=== PATIENT | female | born 1940 | race Caucasian/White ===

== ENCOUNTER → 2016-07-04 | Outpatient (CLI) | payer OTHER ==
--- NOTE | 2016-07-04 12:56 | DX ---
Lumbar Spine, Two Views July 04, 2016 Indication: Follow up fusion. Technique: Upright AP and lateral views. Comparison: Two-view lumbar spine dated February 08, 2016. Findings: The three-level posterior fusion construct extending from L4 to S1 is well seated. No rebeca hardware fracture or lucency has developed. The construct consists of dual posterior rods, transverse brace at L5, bilateral transpedicle screws at L4, L5, and S1, and devices in the L4-L5 and L5-S1 int erbody spaces. Vertebral bodies are all well preserved. No compression deformities. Severe degenerati ve disk disease at T10-T11 and mild-moderate degenerative disk disease extending from T11-T12 to L3-L 4 are unchanged. Impression: Well-seated posterior fusion construct extending from L4 to S1 is unchanged.
== END ==
LOC: FIMAGING 09:48 → EDSTATUS 11:40
PROVIDERS: ATTEND Physician Assistant
DX: Z98.1 Arthrodesis status (principal)

== ENCOUNTER 2016-07-16 14:54 | Emergency (ER) | payer OTHER ==
[2016-07-16 15:07] VITALS: O2SAT 95
[2016-07-16 15:19] LABS: COLOR YELLOW; LEUKOCYTE ESTERASE,URINE 1+ (NEGATIVE); NITRITE,URINE NEGATIVE (NEGATIVE); PH,URINE 5.5 (5.0-7.5)
--- NOTE | 2016-07-16 15:19 | UCPHY ---
H & P Patient Type: Established Chief Complaint Nursing Narrative: urinary urgency and frequency that started today. Denies back pain, denies fever Time Seen by Provider: 07/16/16 15:28 HPI/ROS: HPI: 75-year-old female presents to urgent care with chief concern urinary burning frequency that onset suddenly this afternoon. Denies fever, chills, dizziness, headache, nausea, vomiting, back or flank pain, hematuria. Has frequent UTIs. Primary care provider Dr. Kim Andre. Type 2 diabetic. ROS:10 point review of systems is negative other than as stated in HPI Source: Patient Exam Limitations: No limitations - Personal History Current Tetanus Diphtheria and Acellular Pertussis (TDAP): Yes Tetanus Vaccine Date: 2010 - Medical/Surgical History Hx Asthma: Yes Hx Chronic Respiratory Disease: No Hx Diabetes: Yes Hx Cardiac Disease: No Hx Renal Disease: No Hx Cirrhosis: No Hx Alcoholism: No Hx HIV/AIDS: No Hx Splenectomy or Spleen Trauma: No Other PMH: PMH- diabetes, UTI'S, ASTHMA, HTN. PSH- BACK, B HIPS, APPY, HYSTERECTOMY - Family History Significant Family History: No pertinent family hx - Social History Smoking Status: Former smoker Alcohol Use: None Drug Use: None - Physical Exam Exam: Vital signs stable, reviewed by me HEENT: Unremarkable. Atraumatic. PEERLA/EOMI. Neck: Supple, nontender, no lymphadenopathy Resp: Lungs CTA bilaterally. Breath sounds equal bilaterally. CV: HRR. S1S2. No MRG. ABD: Soft, nontender. Bowel sounds normoactive x 4 quadrants. : No CVA or flank tenderness. No suprapubic tenderness Extremities: Full ROM all extremities Neuro: Alert, oriented x 3. No focal deficits. Mental Status: Interactive, appropriate, well-groomed. Constitutional: Initial Vital Signs Temperature (C) 36.7 C 07/16/16 15:06 Heart Rate 85 07/16/16 15:06 Respiratory Rate 18 07/16/16 15:06 Blood Pressure 158/77 H 07/16/16 15:06 O2 Sat (%) 95 07/16/16 15:06 O2 Delivery Mode Room Air Allergies/Adverse Reactions: No Allergies [NKDA] Allergy (Verified 04/14/15 14:55) POLLEN Allergy (Mild, Uncoded 04/14/15 14:55) SNEEZE Home Medications: Medication Instructions Recorded Atorvastatin Calcium [Lipitor 20 20 mg PO DAILY 09/24/13 mg (*)] Cholecalciferol Vit D3 [Vitamin D3 1,000 units PO DAILY 09/24/13 (*)] Omeprazole [Prilosec 20 mg] 20 mg PO DAILY 09/24/13 Valsartan/Hydrochlorothiazide 1 each PO DAILY 09/24/13 [Diovan Hct 160-25 mg Tablet] C/E/Zn/Cu/OM3/DHA/EPA/LUT/ZEAX 1 each PO DAILY 09/28/15 [Preservision Areds 2 Softgel] Galantamine HBr [Razadyne ER] 16 mg PO DAILY 09/28/15 Herbals/Supplements -Info Only 1 ea PO DAILY 09/28/15 [place]-3 Ethyl Est-Lovaza [Lovaza 1 4 gm PO DAILY 09/28/15 gm (*)] metFORMIN HCL [Glucophage 500 mg 1,000 mg PO DAILY 09/28/15 (*)] metFORMIN HCL [Glucophage 500 mg 500 mg PO DAILY@17 09/28/15 (*)] Enoxaparin [Lovenox 40 MG (*)] 40 mg SC DAILY #7 syr 10/19/15 HYDROcodone/APAP 10/325 [[place] 1 - 2 tab PO Q6 PRN #90 tab 10/19/15 10/325 (*)] Methocarbamol [Robaxin 750 mg (*)] 750 mg PO QID PRN #60 tab 10/19/15 Sennosides/Docusate Sodium 1 - 2 tab PO BID #40 tab 10/19/15 [Senokot-S] oxyCODONE CR [Oxycontin] 10 mg PO Q12 #30 tab 10/19/15 Cephalexin [Keflex (RX)] 500 mg PO TID 6 Days 04/11/16 Phenazopyridine HCl [Pyridium] 200 mg PO TID #6 tab 04/11/16 Meclizine HCl [Meclizine HCl 25 mg 25 mg PO Q8 PRN #20 tab 06/17/16 (RX,OTC)] Cephalexin [Keflex (*)] 500 mg PO BID #14 cap 07/16/16 Medical Decision Making ED Course/Re-evaluation: Stable, afebrile, nontoxic 75-year-old female presents to urgent care with dysuria. Urinalysis indicates 1+ esterase, 15-25 WBCs. Urine culture pending. Started on twice daily Keflex x1 week. Counseled regarding need for follow-up. Verbalizes understanding. Differential Diagnosis: Cystitis, pyelonephritis, dysuria - Data Points Laboratory Results: 07/16/16 15:10 Urine Color YELLOW Urine Appearance HAZY Urine pH 5.5 (5.0-7.5) Ur Specific [place] >= 1.030 (1.002-1.030) Urine Protein NEGATIVE (NEGATIVE) Urine Ketones TRACE H (NEGATIVE) Urine Blood NEGATIVE (NEGATIVE) Urine Nitrate NEGATIVE (NEGATIVE) Urine Bilirubin NEGATIVE (NEGATIVE) Urine Urobilinogen 0.2 EU (0.2-1.0) Ur Leukocyte Esterase 1+ H (NEGATIVE) Urine RBC 3-5 H /hpf (0-3) Urine WBC 15-25 H /hpf (0-3) Ur Epithelial Cells 2+ H /lpf (NONE-1+) Urine Bacteria 2+ H /hpf (NONE SEEN) Hyaline Casts 5-10 H /lpf (0-1) Urine Mucus 2+ H /lpf (NONE-1+) Urine Glucose NEGATIVE (NEGATIVE) Medications Given: Discontinued Medications Cephalexin HCl (Keflex) 500 mg PO EDNOW ONE PRN Reason: Protocol Stop: 07/16/16 15:31 Last Admin: 07/16/16 15:48 Dose: 500 mg Departure - Departure Disposition: Home, Routine, Self-Care Clinical Impression: Urinary tract infection Qualifiers: Urinary tract infection type: acute cystitis Hematuria presence: without hematuria Qualifier Code: (N30.00) Acute cystitis without hematuria Instructions: Urinary Tract Infection in Women (ED) Additional Instructions: Plan: Keflex 500 mg twice daily for 1 week, take with food, 1st dose given in Urgent Care Drink plenty of fluids If he developed fever, back or flank pain, nausea or vomiting, return here promptly for recheck or go to emergency department Otherwise, follow up with Dr. Kim Andre the by Friday for recheck without fail- -When you call to schedule appointment, please let the office know you are an "ER follow up" appointment" [id number] azo as needed for urinary discomfort Referrals: Dughi,Kim J, MD [Primary Care Provider] - As per Instructions Prescriptions: Cephalexin [Keflex (*)] 500 mg PO BID #14 cap - PQRS PQRS Measurement: 134: Depression screening and followup, PRIME -PHQ2 (12 years and older) Over the last 2 weeks, how often have you been bothered by any of the following problems? 1. Feeling down, depressed, or hopeless? 2. Little interest or pleasure in doing things? Patient answered no to both 1 and 2 130: Documentation of medications. Reviewed all patient medications, doses, route and frequency. 226: Do you smoke? No 47: 65 and older: Advanced care planning. Patient has advanced directive. 51: 18 years old and older with diagnosis of COPD, spirometry performance. Patient has no history of COPD 52: 18 years old and older with COPD and symptoms of COPD or FEV1<60% no history of COPD
[2016-07-16] MEDS ORDERED: CEPHALEXIN 500 MG CAP PO ONE (15:30)
[2016-07-16 15:44] LABS: BACTERIA 2+ /hpf (NONE SEEN); MUCUS 2+ /lpf (NONE-1+); WBC,URINE 15-25 /hpf (0-3)
[2016-07-16 15:58] VITALS: BP 144/75; PULSE 72; RESP 20; TEMP 98.2
== END 2016-07-16 15:53 | disposition home or self-care (01) ==
LOC: CED 14:54
DX: N30.00 Acute cystitis without hematuria (principal); Z87.440 Personal history of urinary (tract) infections
CPT/HCPCS: 81003-PO; 81015-PO; 99214-PO; G0463-PO

== ENCOUNTER 2016-08-27 11:02 | Emergency (ER) | payer OTHER ==
[2016-08-27 11:23] VITALS: BP 151/67; PULSE 89; RESP 18; TEMP 98.1; O2SAT 93
[2016-08-27 11:32] LABS: COLOR YELLOW; LEUKOCYTE ESTERASE,URINE 2+ (NEGATIVE); NITRITE,URINE POSITIVE (NEGATIVE); PH,URINE 5.5 (5.0-7.5)
[2016-08-27 11:47] LABS: BACTERIA 1+ /hpf (NONE SEEN); RBC,URINE 25-50 /hpf (0-3); WBC,URINE >182 /hpf (0-3)
--- NOTE | 2016-08-27 11:55 | UCPHY ---
H & P Time Seen by Provider: 08/27/16 11:43 Patient Type: Established HPI/ROS: This patient has UTI symptoms. She explains a yesterday she developed dysuria frequency and urgency similar to previous bladder infections. She notes no exacerbating or alleviating factors. Her last UTI was 1 year ago. ROS: No fevers or chills. No other constitutional symptoms. : No flank pain GI: No vomiting. 5 point ROS is otherwise negative Past Medical/Surgical History: UTIs [id number] diabetes Smoking Status: Former smoker Physical Exam: Pleasant 75-year-old female with normal vital signs General Appearance: Alert, no distress. Respiratory: There are no retractions, lungs are clear to auscultation. Cardiovascular: Regular rate and rhythm. Gastrointestinal: Minimal suprapubic tenderness with no guarding or rebound. Back: No CVA tenderness Neurological: Alert. No focal deficits noted Skin: Warm and dry, no rashes. DIFFERENTIAL DIAGNOSIS: After history and physical exam differential diagnosis was considered for cystitis, interstitial cystitis, pyelonephritis, urethral pathology Constitutional: Initial Vital Signs Temperature (C) 36.7 C 08/27/16 11:21 Heart Rate 89 08/27/16 11:21 Respiratory Rate 18 08/27/16 11:21 Blood Pressure 151/67 H 08/27/16 11:21 O2 Sat (%) 93 08/27/16 11:21 O2 Delivery Mode Room Air Allergies/Adverse Reactions: No Allergies [NKDA] Allergy (Verified 08/27/16 11:18) POLLEN Allergy (Mild, Uncoded 04/14/15 14:55) SNEEZE Home Medications: Medication Instructions Recorded Atorvastatin Calcium [Lipitor 20 20 mg PO DAILY 09/24/13 mg (*)] Cholecalciferol Vit D3 [Vitamin D3 1,000 units PO DAILY 09/24/13 (*)] Omeprazole [Prilosec 20 mg] 20 mg PO DAILY 09/24/13 Valsartan/Hydrochlorothiazide 1 each PO DAILY 09/24/13 [Diovan Hct 160-25 mg Tablet] C/E/Zn/Cu/OM3/DHA/EPA/LUT/ZEAX 1 each PO DAILY 09/28/15 [Preservision Areds 2 Softgel] Galantamine HBr [Razadyne ER] 16 mg PO DAILY 09/28/15 Herbals/Supplements -Info Only 1 ea PO DAILY 09/28/15 [place]-3 Ethyl Est-Lovaza [Lovaza 1 4 gm PO DAILY 09/28/15 gm (*)] metFORMIN HCL [Glucophage 500 mg 1,000 mg PO DAILY 09/28/15 (*)] metFORMIN HCL [Glucophage 500 mg 500 mg PO DAILY@17 09/28/15 (*)] Methocarbamol [Robaxin 750 mg (*)] 750 mg PO QID PRN #60 tab 10/19/15 Sennosides/Docusate Sodium 1 - 2 tab PO BID #40 tab 10/19/15 [Senokot-S] Cephalexin [Keflex (*)] 500 mg PO TID #21 cap 08/27/16 MDM/Departure - MDM Diagnostics: Urinalysis is consistent with UTI. ED Course/Re-evaluation: History and clinical findings consistent with cystitis. I counseled patient regarding this. - Depart Disposition: Home, Routine, Self-Care Clinical Impression: Cystitis Condition: Good Instructions: Urinary Tract Infection in Women (ED) Additional Instructions: Diagnosis: Cystitis Plan: Drink plenty fluids Keflex antibiotic Return for any significant worsening despite the treatment plan. Prescriptions: Cephalexin [Keflex (*)] 500 mg PO TID #21 cap Referrals: Kim Andre MD [Primary Care Provider] - As per Instructions - PQRS PQRS Measurement: 134: Depression screening and followup, PRIME MD-PHQ2 (12 years and older) Over the last 2 weeks, how often have you been bothered by any of the following problems? 1. Feeling down, depressed, or hopeless? 2. Little interest or pleasure in doing things? Patient answered no to both 1 and 2 130: Documentation of medications. Reviewed all patient medications, doses, route and frequency. 226: Do you smoke? [No.] 47: 65 and older: Advanced care planning. Patient designates surrogate decision maker as spouse 51: 18 years old and older with diagnosis of COPD, spirometry performance. NA 52: 18 years old and older with COPD and symptoms of COPD or FEV1<60% predicted prescribed a B Agonist. NA
== END 2016-08-27 12:00 | disposition home or self-care (01) ==
LOC: CED 11:02
DX: N30.00 Acute cystitis without hematuria (principal); E11.9 Type 2 diabetes mellitus without complications; Z87.440 Personal history of urinary (tract) infections
CPT/HCPCS: 81003-PO; 81015-PO; 99214-PO; G0463-PO

== ENCOUNTER 2016-09-17 18:26 | Emergency (ER) | payer OTHER ==
[2016-09-17 18:57] VITALS: RESP 18; TEMP 98.4
[2016-09-17 19:12] LABS: COLOR YELLOW; LEUKOCYTE ESTERASE,URINE NEGATIVE (NEGATIVE); NITRITE,URINE NEGATIVE (NEGATIVE); PH,URINE 5.5 (5.0-7.5)
--- NOTE | 2016-09-17 19:45 | UCPHY ---
H & P Time Seen by Provider: 09/17/16 19:32 Patient Type: Established HPI/ROS: CHIEF COMPLAINT: Frequency HISTORY OF PRESENT ILLNESS: This is a 75-year-old female who reports that she has very frequent urinary tract infections. She states that often times her only symptom is frequency. She is also concerned because she has been having incontinence. Denies hematuria. Denies fever. Denies abdominal pain or back pain. Denies nausea, or vomiting. Patient has been seen on several occasions recently and diagnosed with both E coli urinary tract infections susceptible to Keflex as well as Enterobacter and Pseudomonas infection. She tells me that she saw Dr. Andre at the beginning of August was placed on an experimental medication which she took for 10 days. She stopped that 3 days ago. She now is complaining of frequency again. She wishes to be started on a suppressive therapy. No fever, chills, chest pain, shortness of breath, palpitations, vomiting, diarrhea, headache, lightheadedness. REVIEW OF SYSTEMS: Aside from elements discussed in the HPI, a comprehensive 10-point review of systems was reviewed and is negative. PAST MEDICAL HISTORY: Hypertension, frequent urinary tract infections. SOCIAL HISTORY: Nonsmoker. VITAL SIGNS: see nurse's notes. GENERAL: Well-developed, well-nourished, in no acute distress. Patient seems frustrated with the frequent urinary tract infections. HEENT: Normal, no discharge or icterus, moist mucous membranes. Neck: supple, FROM. LUNGS: Clear to auscultation bilaterally, no wheezes, rhonchi or rales. CARDIAC: Regular rate and rhythm, no rubs, murmurs or gallops. ABDOMEN: Soft, nontender, nondistended, bowel sounds normal. BACK: No CVA tenderness. No vertebral tenderness. EXTREMITIES: No edema, FROM. NEURO: Alert and oriented, grossly nonfocal. SKIN: Warm and dry, no rash. Smoking Status: Former smoker Constitutional: Initial Vital Signs Temperature (C) 36.9 C 09/17/16 18:53 Heart Rate 93 09/17/16 18:53 Respiratory Rate 18 09/17/16 18:53 Blood Pressure 186/116 H 09/17/16 18:53 O2 Sat (%) 91 L 09/17/16 18:53 O2 Delivery Mode Room Air Allergies/Adverse Reactions: No Allergies [NKDA] Allergy (Verified 08/27/16 11:18) POLLEN Allergy (Mild, Uncoded 04/14/15 14:55) SNEEZE Home Medications: Medication Instructions Recorded Atorvastatin Calcium [Lipitor 20 20 mg PO DAILY 09/24/13 mg (*)] Cholecalciferol Vit D3 [Vitamin D3 1,000 units PO DAILY 09/24/13 (*)] Omeprazole [Prilosec 20 mg] 20 mg PO DAILY 09/24/13 Valsartan/Hydrochlorothiazide 1 each PO DAILY 09/24/13 [Diovan Hct 160-25 mg Tablet] C/E/Zn/Cu/OM3/DHA/EPA/LUT/ZEAX 1 each PO DAILY 09/28/15 [Preservision Areds 2 Softgel] Galantamine HBr [Razadyne ER] 16 mg PO DAILY 09/28/15 Herbals/Supplements -Info Only 1 ea PO DAILY 09/28/15 [place]-3 Ethyl Est-Lovaza [Lovaza 1 4 gm PO DAILY 09/28/15 gm (*)] metFORMIN HCL [Glucophage 500 mg 1,000 mg PO DAILY 09/28/15 (*)] metFORMIN HCL [Glucophage 500 mg 500 mg PO DAILY@17 09/28/15 (*)] Methocarbamol [Robaxin 750 mg (*)] 750 mg PO QID PRN #60 tab 10/19/15 Sennosides/Docusate Sodium 1 - 2 tab PO BID #40 tab 10/19/15 [Senokot-S] Cephalexin [Keflex (*)] 500 mg PO DAILY #10 cap 09/17/16 Phenazopyridine HCl [Pyridium] 200 mg PO BID PRN #20 tab 09/17/16 MDM/Departure - [facility] ED Course/Re-evaluation: Urinalysis not concerning for infection. Patient quite concerned that she often has frequency as her only symptom of urinary tract infection. She would like to be started on suppressive therapy of Keflex 500 mg once a day. Prescription was provided. Patient was strongly advised to follow up with her primary care physician concerning the experimental medication as well as her frequent urinary tract infections. - Depart Disposition: Home, Routine, Self-Care Clinical Impression: Frequency of urination Condition: Good Instructions: Urinary Incontinence (ED), Dysuria (ED) Additional Instructions: There is no evidence on the preliminary testing that you have urinary tract infection right now. You been given a prescription for Keflex 500 mg once a day to use a suppressive therapy. Discussed this with Dr. Kim Andre. You have also been given a prescription for Pyridium. This will make your urine look orange. It may help with the frequent urination and the inability to control your urine. Prescriptions: Cephalexin [Keflex (*)] 500 mg PO DAILY #10 cap Phenazopyridine HCl [Pyridium] 200 mg PO BID PRN #20 tab PRN Reason: dysuria Referrals: Kim Andre MD [Primary Care Provider] - As per Instructions - PQRS PQRS Measurement: 134: Depression screening and followup, PRIME MD-PHQ2 (12 years and older) Over the last 2 weeks, how often have you been bothered by any of the following problems? 1. Feeling down, depressed, or hopeless? 2. Little interest or pleasure in doing things? Patient answered no to both 1 and 2 130: Documentation of medications. Reviewed all patient medications, doses, route and frequency. 226: Do you smoke? No. 47: 65 and older: Advanced care planning. Patient designates surrogate decision maker as spouse. 51: 18 years old and older with diagnosis of COPD, spirometry performance. Patient has no history of COPD 52: 18 years old and older with COPD and symptoms of COPD or FEV1<60% predicted prescribed a B Agonist. Patient has no history of COPD
[2016-09-17 19:58] VITALS: BP 149/97; PULSE 78; O2SAT 93
== END 2016-09-17 19:57 | disposition home or self-care (01) ==
LOC: CED 18:26
DX: R35.0 Frequency of micturition (principal); R32 Unspecified urinary incontinence; Z87.440 Personal history of urinary (tract) infections
CPT/HCPCS: 81003-PO; 99214-PO; G0463-PO

== ENCOUNTER → 2016-12-30 | Outpatient (CLI) | payer OTHER | LOC: FIMAGING 10:20 → EDSTATUS 11:58 | PROVIDERS: ATTEND Physician Assistant | DX: Z47.89 Encounter for other orthopedic aftercare (principal); Z98.1 Arthrodesis status ==

== ENCOUNTER → 2017-05-02 | Outpatient (CLI) | payer OTHER | LOC: FIMAGING 13:53 | DX: R93.0 Abnormal findings on diagnostic imaging of skull and head, not elsewhere classified (principal); F03.90 Unspecified dementia, unspecified severity, without behavioral disturbance, psychotic disturbance, mood disturbance, and anxiety ==

== ENCOUNTER → 2017-09-11 | Outpatient (CLI) | payer OTHER | LOC: FIMAGING 14:25 | PROVIDERS: ATTEND Physician Assistant | DX: Z09 Encounter for follow-up examination after completed treatment for conditions other than malignant neoplasm (principal); Z98.1 Arthrodesis status ==

== ENCOUNTER → 2018-10-21 | Outpatient (CLI) | payer OTHER | LOC: FIMAGING 14:20 | PROVIDERS: ATTEND Physician Assistant | DX: Z09 Encounter for follow-up examination after completed treatment for conditions other than malignant neoplasm (principal); Z98.1 Arthrodesis status; M51.35 Other intervertebral disc degeneration, thoracolumbar region; M51.36 Other intervertebral disc degeneration, lumbar region; M43.8X6 Other specified deforming dorsopathies, lumbar region ==

== ENCOUNTER → 2018-11-04 | Outpatient (CLI) | payer OTHER | LOC: FIMAGING 06:33 | PROVIDERS: ATTEND Physician Assistant | DX: M51.36 Other intervertebral disc degeneration, lumbar region (principal); Z98.1 Arthrodesis status; N28.9 Disorder of kidney and ureter, unspecified ==